=== PATIENT | male | born 1990 | race Caucasian/White ===

== ENCOUNTER 2016-12-05 13:36 | Inpatient (IN) | payer OTHER | END 2017-01-02 10:14 | disposition home or self-care (01) | DRG 895 | DX: F10.24 Alcohol dependence with alcohol-induced mood disorder (principal); F32.9 Major depressive disorder, single episode, unspecified; F12.21 Cannabis dependence, in remission; E66.9 Obesity, unspecified; R73.02 Impaired glucose tolerance (oral); Z65.3 Problems related to other legal circumstances; Z63.72 Alcoholism and drug addiction in family ==